=== PATIENT | male | born 2000 | race Caucasian/White ===

== ENCOUNTER 2019-12-28 13:05 | Emergency (ER) | payer OTHER ==
[2019-12-28 13:23] VITALS: BP 174/112; PULSE 113; RESP 18; TEMP 99.1
[2019-12-28] MEDS ORDERED: PROPARACAINE 0.5% OPHTH DROPS 15 ML BTL LEFT EYE STA (13:25)
[2019-12-28] MEDS ORDERED: FLUORESCEIN STRIPS 1 MG STRIP LEFT EYE ONE (13:25)
[2019-12-28] MEDS ORDERED: TOBRAMYCIN 0.3% OPHTH DROPS 5 ML BTL RIGHT EYE STA (13:43)
[2019-12-28] MEDS ORDERED: DIPH,PERTUS(ACELL)TETVAC-LF 0.5 ML VIAL IM ONE (13:43)
--- NOTE | 2019-12-28 13:48 | ED ---
General Adult HPI - General Chief complaint: ENT Stated complaint: METAL IN THE EYE Time Seen by Provider: 12/28/19 13:23 Source: patient, RN notes reviewed Mode of arrival: ambulatory Limitations: no limitations - History of Present Illness Initial comments: 19-year-old male presents emergency Department chief complaint of foreign body right eye. Patient states that it's at work states that he has a blowup metal parts. Patient states he felt on his right eye. He is unsure when his last tetanus was. Patient woke up with some crusting and irritation to his right eye no blurred vision. - Related Data Allergies Allergy/AdvReac Type Severity Reaction Status Date / Time No Known Allergies Allergy Verified 12/28/19 13:23 Review of Systems ROS Statement: Those systems with pertinent positive or pertinent negative responses have been documented in the HPI. ROS Other: All systems not noted in ROS Statement are negative. Past Medical History Past Medical History: No Reported History History of Any Multi-Drug Resistant Organisms: None Reported Past Surgical History: Tonsillectomy Additional Past Surgical History / Comment(s): Smithers teeth Smoking Status: Vaper Past Alcohol Use History: Occasional Past Drug Use History: None Reported General Exam Limitations: no limitations General appearance: alert, in no apparent distress Head exam: Present: atraumatic, normocephalic, normal inspection Eye exam: Present: PERRL, EOMI, conjunctival injection (Mild right), other (Foreign body noted in 3 o'clock position fluorescein uptake.). Absent: normal appearance, scleral icterus, periorbital swelling ENT exam: Present: normal exam, normal oropharynx, mucous membranes moist Course Vital Signs 12/28/19 13:19 Temperature 99.1 F Pulse Rate 113 H Respiratory 18 Rate Blood Pressure 174/112 O2 Sat by Pulse 100 Oximetry Procedures - Forgein Body Removal Eye Site: Right Anesthetic Used: Proparacaine Eye Exam Technique: Bentley Lamp, Fluorescein Foreign Body Suspected: Metal Forgein Body Removal Technique: Cotton Swab, [place] Remaining Debris: No Patient Tolerated: no complications Medical Decision Making - Medical Decision Making Patient formerly right eye was able to remove patient was placed on Tobrex and was updated on tetanus. Disposition Clinical Impression: Foreign body of right eye Disposition: HOME SELF-CARE Condition: Stable Instructions (If sedation given, give patient instructions): Eye Foreign Body (ED) Additional Instructions: Use Tobrex eyedrops 1 drop every 4 hours for the next 5 days.Please return to the Emergency Department if symptoms worsen or any other concerns. Is patient prescribed a controlled substance at d/c from ED?: No Referrals: Marcelo James DO [Primary Care Provider] - 1-2 days Armand Carroll MD [STAFF PHYSICIAN] - 1-2 days Time of Disposition: 13:48
== END 2019-12-28 14:43 | disposition home or self-care (01) ==
LOC: EC 13:05
DX: T15.91XA Foreign body on external eye, part unspecified, right eye, initial encounter (principal); Z23 Encounter for immunization; F17.290 Nicotine dependence, other tobacco product, uncomplicated; Y93.89 Activity, other specified; Y92.69 Other specified industrial and construction area as the place of occurrence of the external cause; Y99.0 Civilian activity done for income or pay
CPT/HCPCS: 65205; 90471; 90715; 99283